=== PATIENT | female | born 1950 | race Caucasian/White ===

== ENCOUNTER → 2019-01-05 | Outpatient (CLI) | payer MEDICARE ==
[~2019-01-05] MED LIST: ASPI81CH PO; B Complete1 EACH PO; GLUCOSAMIN-CHO1 EACH PO; OMEP20ER PO; Zithromax250 MG PO
[2019-01-05 13:34] LABS: BASOPHILS ABSOLUTE AUTO 0.06 K/mm3 (0.00-0.23); BASOPHILS PERCENT AUTO 1 % (0-2); EOSINOPHILS ABSOLUTE AUTO 0.01 K/mm3 (0.00-0.68); EOSINOPHILS PERCENT AUTO 0 % (0-6); Hemoglobin 12.3 g/dL (11.5-16.0); IMMATURE GRAN ABSOLUTE AUTO 0.03 K/mm3 (0.00-0.10); IMMATURE GRAN PERCENT AUTO 0 % (0-1); LYMPHOCYTES ABSOLUTE AUTO 2.13 K/mm3 (0.84-5.20); LYMPHOCYTES PERCENT AUTO 26 % (21-46); MONOCYTES ABSOLUTE AUTO 0.85 K/mm3 (0.16-1.47); MONOCYTES PERCENT AUTO 10 % (4-13); Mean Corpuscular HGB 29.5 pg (26.0-34.0); Mean Corpuscular HGB Conc 30.8 g/dL (31.5-36.5); Mean Corpuscular Volume 96 fL (80-100); Mean Platelet Volume 9.4 fL (9.1-12.4); NEUTROPHILS ABSOLUTE AUTO 5.08 K/mm3 (1.96-9.15); NEUTROPHILS PERCENT AUTO 62 % (41-73); Platelet Count 318 K/mm3 (150-400); RDW Coefficient Variation 13.4 % (11.7-14.2); RDW Standard Deviation 46.7 fL (35.1-46.3); Red Blood Cell Count 4.17 M/mm3 (3.80-5.20); White Blood Cell Count 8.16 K/mm3 (4.00-11.30)
[2019-01-05 14:15] LABS: Albumin, Blood 3.5 g/dL (3.4-5.0); Anion Gap 8 mmol/L (6-16); Aspartate Aminotrans (AST/SGOT 24 U/L (12-37); Blood Urea Nitrogen 21 mg/dL (8-24); Bun/Creatinine Ratio 17.2 (12.0-20.0); CO2, Blood 23 mmol/L (21-32); Calcium, Blood 8.9 mg/dL (8.5-10.1); Chloride, Blood 107 mmol/L (98-108); Creatinine, Blood 1.22 mg/dL (0.40-1.00); Glomerular Filtration Rate 46 (60-); Glucose, Blood 92 mg/dL (70-99); Phosphorus, Blood 3.3 mg/dL (2.5-4.9); Potassium, Blood 4.2 mmol/L (3.5-5.5); Sodium, Blood 138 mmol/L (136-145)
== END | disposition home or self-care (01) ==
LOC: LAB 10:20 → LAB SHORT 10:20 → LAB FUT 01-06 11:15 → EDSTATUS 01-06 11:15
PROVIDERS: Internal Medicine Rheumatology
DX: M05.9 Rheumatoid arthritis with rheumatoid factor, unspecified (principal)
CPT/HCPCS: 80069; 84450; 85025; 85651

== ENCOUNTER 2021-07-19 11:55 | Inpatient (IN) | payer MEDICARE ==
[~2021-07-19] VITALS: Ht 165.1 cm; Wt 86.2 kg
[2021-07-19 12:18] LABS: BASOPHILS ABSOLUTE AUTO 0.03 K/mm3 (0.00-0.23); BASOPHILS PERCENT AUTO 0 % (0-2); EOSINOPHILS PERCENT AUTO 0 % (0-6); Hemoglobin 12.1 g/dL (11.5-16.0); IMMATURE GRAN ABSOLUTE AUTO 0.07 K/mm3 (0.00-0.10); IMMATURE GRAN PERCENT AUTO 1 % (0-1); LYMPHOCYTES ABSOLUTE AUTO 0.67 K/mm3 (0.84-5.20); LYMPHOCYTES PERCENT AUTO 4 % (21-46); MONOCYTES ABSOLUTE AUTO 0.25 K/mm3 (0.16-1.47); MONOCYTES PERCENT AUTO 2 % (4-13); Mean Corpuscular HGB 31.9 pg (26.0-34.0); Mean Corpuscular Volume 103 fL (80-100); Mean Platelet Volume 9.5 fL (9.1-12.4); NEUTROPHILS ABSOLUTE AUTO 14.47 K/mm3 (1.96-9.15); NEUTROPHILS PERCENT AUTO 93 % (41-73); Platelet Count 337 K/mm3 (150-400); RDW Coefficient Variation 14.9 % (11.7-14.2); RDW Standard Deviation 55.8 fL (35.1-46.3); Red Blood Cell Count 3.79 M/mm3 (3.80-5.20); White Blood Cell Count 15.49 K/mm3 (4.00-11.30)
[2021-07-19 12:24] LABS: Bicarbonate Venous 21.5 mmol/L (24.0-30.0); PCO2 Venous 42.7 mmHg (38-42); PO2 Venous 41.2 mmHg (38-42); pH Blood Venous 7.34 (7.34-7.37)
[2021-07-19 12:38] LABS: Albumin/Globulin Ratio 0.7 (0.8-1.8); Bilirubin, Total 0.7 mg/dL (0.1-1.0); Bun/Creatinine Ratio 20.3 (12.0-20.0); Calcium, Blood 8.9 mg/dL (8.5-10.1); Creatinine, Blood 1.43 mg/dL (0.40-1.00); Globulin, Blood 4.2 g/dL (2.2-4.0); Potassium, Blood 4.5 mmol/L (3.5-5.5); Total Protein, Blood 7.2 g/dL (6.4-8.2)
[2021-07-19 13:39] LABS: Influenza A, PCR NEGATIVE (NEGATIVE); Influenza B, PCR NEGATIVE (NEGATIVE); Resp Syncytial Virus, PCR NEGATIVE (NEGATIVE); SARS-Cov-2 (COVID-19) PCR, MMC NEGATIVE (NEGATIVE)
--- NOTE | 2021-07-19 16:50 | NUR ---
PT ARRIVED TO ROOM 334 FROM ER VIA GURNEY. NON REBREATHER IN PLACE ON 15L. SLIDER SHEET USED FOR TRANSFER PT DESATS EASILY WITH ACTIVITY. PT DENIES PAIN AT THIS TIME, ORIENTED PT TO ROOM, PHONES AND CALL SYSTEM. NO S/S OF DISTRESS, WILL MONITOR.
--- NOTE | 2021-07-19 17:15 | NUR ---
PT HUNGRY AND ASKING FOR A SNACK, SHE IS ABLE TO EAT AND TALK ON THE PHONE WITHOUT INCREASED RESP DISTRESS. WILL MONITOR
[2021-07-19] MEDS ORDERED: VITAMIN D31000 UNI1 PO (17:24)
[2021-07-19] MEDS ORDERED: Prednisone10 MG PO (17:25)
[2021-07-19] MEDS ORDERED: ALBUTEROL1.25 MG/3 NEB (17:26)
[2021-07-19] MEDS ORDERED: METTREX2.5 PO (17:26)
--- NOTE | 2021-07-19 19:01 | NUR ---
NO CHANGES SINCE PT ARRIVED TO ROOM, WILL CONTINUE TO MONITOR AND REPORT TO ONCOMING RN
[2021-07-20 04:09] LABS: Hematocrit 35.3 % (33.0-51.0); Hemoglobin 11.2 g/dL (11.5-16.0); Mean Corpuscular HGB 32.2 pg (26.0-34.0); Mean Corpuscular HGB Conc 31.7 g/dL (31.5-36.5); Mean Corpuscular Volume 101 fL (80-100); Mean Platelet Volume 8.9 fL (9.1-12.4); Platelet Count 286 K/mm3 (150-400); RDW Coefficient Variation 14.6 % (11.7-14.2); RDW Standard Deviation 53.6 fL (35.1-46.3); Red Blood Cell Count 3.48 M/mm3 (3.80-5.20); White Blood Cell Count 11.25 K/mm3 (4.00-11.30)
[2021-07-20 04:25] LABS: Bun/Creatinine Ratio 19.6 (12.0-20.0); Calcium, Blood 9.1 mg/dL (8.5-10.1); Creatinine, Blood 1.38 mg/dL (0.40-1.00); Potassium, Blood 4.6 mmol/L (3.5-5.5)
--- NOTE | 2021-07-20 07:36 | NUR ---
PROFESSOR OF JOURNALISM SUMMARY Patient had no complaints of discomfort overnight. AIRVO was placed at 30L and 53% FI02. just after change of shift. Ms Brooks continued to have difficulties with profound drops in her 02 Sat regularly down into the 60's with very minimal movement. (taking a drink or being assisted onto a bedpan). RT was in very frequently as well as nursing staff. Patient appeared to tolerate these tremendous desats and prolonged recoveries. staff has been told to minimize her movement, and no activity OOB to preserve 02 status. Concerns conveyed to oncoming RN's)
[2021-07-20] MEDS ORDERED: ACET500 PO (11:01)
[2021-07-20] MEDS ORDERED: FOLI1 PO (11:03)
[2021-07-20] MEDS ORDERED: GUAI600T33 PO (11:03)
[2021-07-20] MEDS ORDERED: BREZTRI AEROS10.7 GM INH (11:05)
--- NOTE | 2021-07-21 06:18 | NUR ---
PRIZE JACKER SUMMARY PATIENT OXYGEN DEMAND CONTINUES TO BE VERY LABILE. ROSELINE'S SAT DOES NOT APPEAR TO DROP QUITE FAR WITH POSITION CHANGES OR BEDPAN. DIPS INTO THE LOW 70'S WITH CONSISTANTLY SLOW RECOVERY BACK TO HIGH 80'S TO LOW 90'S. PATIENT HAD A VERY LARGE LOOSE BOWEL MOVEMENT IN THE EVENING. SHE IS ALREADY GETTING A PROBIOTIC AT . NO OTHER CHANGES OVERNIGHT.
--- NOTE | 2021-07-21 17:15 | NUR ---
SHIFT SUMMARY: NO ACUTE EVENTS. CONVERTED PT TO NRB AT 10 L/MIN FOR ACTIVITY; SHE IS ABLE TO TOLERATE ACTIVITY MUCH BETTER THIS WAY THAN WITH AIRVO. SAT UP FOR ABOUT 30 MINUTES, ABLE TO TOLERATE FULL BATH WHILE IN CHAIR. WHEN SHE WENT BTB, SHE STATED HER BREATHING WAS NOT LABORED AND SHE RECOVERED MORE QUICKLY. DENIED PAIN. MODERATE APPETITE, TOLERATING PO FLUIDS. IS USING INCENTIVE SPIROMETER.
--- NOTE | 2021-07-22 06:18 | NUR ---
PT A/OX4, VERY PLEASANT, ON 30L 43% FiO2 CONTINOUS TO DESAT SIGNIFICANTLY WITH ACTIVITY. PUREWICK PLACED OVERNIGHT TO MINIMIZE DESATING USING COMMODE AND TO ALLOW PT TO SLEEP. NO ACUTE CHANGES NOTED OVERNIGHT.
--- NOTE | 2021-07-22 17:29 | NUR ---
PATIENT CONTINUES TO HAVE SOME WHEEZING IN LUNG COX. SHE HAS SOB WITH TALKING AND MOVEMENT. O2 IS RUNNING 35L, 49 fI02.SHE DENIES PAIN OF ANY KIND OF PAIN, BUT STATES SHE HAS HAD CHEST PAIN IN THE PAST, WHEN 02 IS LOW. DIURETIC AND STEROID STARTING. SHE STILL HAS HOPE OF GOING [place] THIS WEEKEND.
[2021-07-23 04:38] LABS: BASOPHILS ABSOLUTE AUTO 0.02 K/mm3 (0.00-0.23); BASOPHILS PERCENT AUTO 0 % (0-2); EOSINOPHILS PERCENT AUTO 0 % (0-6); Hematocrit 38.8 % (33.0-51.0); Hemoglobin 12.3 g/dL (11.5-16.0); IMMATURE GRAN ABSOLUTE AUTO 0.07 K/mm3 (0.00-0.10); IMMATURE GRAN PERCENT AUTO 1 % (0-1); LYMPHOCYTES ABSOLUTE AUTO 0.43 K/mm3 (0.84-5.20); LYMPHOCYTES PERCENT AUTO 3 % (21-46); MONOCYTES ABSOLUTE AUTO 0.17 K/mm3 (0.16-1.47); MONOCYTES PERCENT AUTO 1 % (4-13); Mean Corpuscular HGB 31.7 pg (26.0-34.0); Mean Corpuscular HGB Conc 31.7 g/dL (31.5-36.5); Mean Corpuscular Volume 100 fL (80-100); Mean Platelet Volume 9.3 fL (9.1-12.4); NEUTROPHILS ABSOLUTE AUTO 12.31 K/mm3 (1.96-9.15); NEUTROPHILS PERCENT AUTO 95 % (41-73); NRBC ABSOLUTE 0.02 K/mm3 (0.00-0.02); NRBC Auto 0.2 /100 WBC (0.0-0.2); Platelet Count 309 K/mm3 (150-400); RDW Coefficient Variation 14.6 % (11.7-14.2); RDW Standard Deviation 53.1 fL (35.1-46.3); Red Blood Cell Count 3.88 M/mm3 (3.80-5.20)
[2021-07-23 04:59] LABS: Anion Gap 7 mmol/L (6-16); Blood Urea Nitrogen 40 mg/dL (8-24); Bun/Creatinine Ratio 26.8 (12.0-20.0); CO2, Blood 25 mmol/L (21-32); Calcium, Blood 9.2 mg/dL (8.5-10.1); Chloride, Blood 107 mmol/L (98-108); Creatinine, Blood 1.49 mg/dL (0.40-1.00); Glomerular Filtration Rate 37 (60-); Glucose, Blood 131 mg/dL (70-99); Phosphorus, Blood 5.1 mg/dL (2.5-4.9); Potassium, Blood 4.7 mmol/L (3.5-5.5); Sodium, Blood 139 mmol/L (136-145)
--- NOTE | 2021-07-23 17:22 | NUR ---
SHIFT SUMMARY PATIENT IS ALERT AND ORIENTED X4. PATIENT HAS BEEN PLEASENT AND COOPERATIVE WITH CARE THIS SHIFT. PATIENT HAS HAD EPISODES WITH SOB WITH EXERTION THIS SHIFT. PATIENT IS ON NASAL CANNULA 6L. PATIENT HAS BEEN IN CHAIR MOST OF SHIFT. PATIENT IS A ONE PERSON ASSIST TO COMMODE. DESATS WITH ACTIVITY. BED IN LOCKED AND LOWEST POSITION. CALL LIGHT IN PLACE. WILL MONITOR UNTIL SHIFT CHANGE.
[2021-07-24 05:48] LABS: Bun/Creatinine Ratio 35.7 (12.0-20.0); Calcium, Blood 9.5 mg/dL (8.5-10.1); Creatinine, Blood 1.54 mg/dL (0.40-1.00); Potassium, Blood 4.7 mmol/L (3.5-5.5)
--- NOTE | 2021-07-24 07:23 | NUR ---
PT weaned back to 5 l via mask per RT & tolerating. She has bioxx & is able to tolerate being up to BSC. Productive cough this AM strep G in sputum per recent culture.
--- NOTE | 2021-07-24 14:18 | NUR ---
Initial Visit Palliative Care Consult for Pulmonary, AD/POLST, and Advanced Care Planning. 71 year old female admitted to the hospital for Pnuemonia. Pt's medical history and comorbidities include: Rhrumatoid with Pumonary, COPD with Severe Emphesema, Pulmonary Fibrosis, and Chronic Pain. Pt is sitting in recliner upon arrival. Pt has friend present intitally but she leaves shortly after arrival. Pt is A&O and denies pain at this time. Pt denies anxiety at this time but does report anxiety with SOB. Pt reports mild dyspnea at this time but states breathing has significanlty improved. Pt reports living at home with her . Pt has a son who lives on the same property. She reports spouse is capable of assisting with some of her basice needs such as cooking but does not think he would be capable of providing intense care if ever needed. She reports her son is also supportive. Engaged in therapeutic discussion regarding advanced care planning. Educated on disease process including trajectory of disease. Discussed the importance of routine conversation with PCP and developing multiple plans as disease progresses. Discussed Advanced Directives and POLST. Educated on life sustaining measures and implications of CPR. Educated on each section to complete on POLST and AD. Educated on choices for each form. Discussed the importance of appointing a healthcare passenger representative on AD. Offered therapeutic listening and answered questions. Pt reports plan to discuss with family and will complete at home. Pt expresses appreciation and reports no other concerns at this time. PPS 50% Pt high risk for readmission Palliative Care will remain available.
--- NOTE | 2021-07-24 18:05 | NUR ---
PATIENT A/OX4, VERY PLEASANT AND COOPERATIVE WITH CARE. DENIES ANY PAIN OR DISCMOFORT. VSS, 5LO2 VIA OXYMASK TO MAINTAIN SATS. PATIENT DESATS WITH ACTIVITY AND EATING. SKIN INTACT. AT BEDSIDE THIS EVENING. CONTINENT/INCONTIENT OF URINE, PUREWICK CATH IN PLACE WHEN IN BED. UP TO CHAIR FOR MOST OF THIS SHIFT, WORKING WITH PT. TOLERATING REGULAR DIET. IV R FA WNL AND SL. CALLS APPROPRIATELY FOR ASSISTANCE.
--- NOTE | 2021-07-25 15:36 | NUR ---
Spiritual Care Visit Pt. is sitting up in a chair with her feet up on the bed. Pt. welcomes my visit. Pt. is unsettled by the length of time she has had to use O2 and deal with her medical diagnosis. As a woman of justa her justa and belief is grounded in the Good News. Pt. is unsettled by the spiritual condition of her and son. Establish rapport and pray for Pt., Pts. , and son. Pt. verbalized gratitude for the spiritual care visit. Pt. looks to discharge tomorrow (07/26).
--- NOTE | 2021-07-25 18:21 | NUR ---
PATIENT ALERT AND ORIENTED X4. SHE HAS BEEN PLEASANT AND COOPERATIVE WITH HER CARE. SHE IS STILL HAVING LOW OXYGEN IN THE 60'S-70'S WITH ANY KIND OF ACTIVITY. SHE IS A 1 PERSON ASSIST TO THE BEDSIDE COMMODE. SHE HAS SPENT THE MAJORITY OF THE SHIFT IN HER RECLINER AND SEEMS TO BE HAPPY AND RELAXED. PT TO BE DISCHARGED TOMORROW. CALL LIGHT IN REACH. BED IN LOWEST POSITION. WILL CONTINUE TO MONITOR TILL END OF SHIFT.
--- NOTE | 2021-07-25 18:36 | NUR ---
REVIEWED NOTES AND ASSESSMENT DOCUMENTATION CHARTED BY PHIL, STUDENT NURSE AND AGREE WITH HER FINDINGS ON THIS PATIENT.
--- NOTE | 2021-07-26 04:48 | NUR ---
Patient with VSS on 5l/o2 overnight. Patient desats with any activity but is ableto recover quickly. Up to bedside commode to void. Skin inspection reveals no acute skin issues. Patient hopingto go home today after home O2 eval is complete.
--- NOTE | 2021-07-26 07:55 | NUR ---
Patient complaining of feeling like a coating in the back of her mouth/throat. Appears to be thrush in appearance. called provider. will enter an order for nystatin.
[2021-07-26] MEDS ORDERED: PRED20 PO (13:44)
[2021-07-26] MEDS ORDERED: NYSTATIN100000 U10 MT (13:46)
--- NOTE | 2021-07-26 17:12 | NUR ---
PATIENT WAS DISHCARGED HOME TODAY. [facility] WILL BE MANAGING HOME O2. SHE WAS INSTRUCTED ON DISCHARGE ORDERS, EDUCATION AND IV WAS REMOVED BEFORE SHE LEFT, TRANSPORTED BY TO HOME.
== END 2021-07-26 16:05 | disposition home health service (06) | DRG 871 ==
LOC: ER 11:55 → MEDS 16:42
PROVIDERS: Emergency Medicine; Student in an Organized Health Care Education/Training Program; ADMIT Internal Medicine
DX: A40.8 Other streptococcal sepsis (principal); J15.4 Pneumonia due to other streptococci; J96.21 Acute and chronic respiratory failure with hypoxia; R65.20 Severe sepsis without septic shock; Z20.822 Contact with and (suspected) exposure to COVID-19; M06.9 Rheumatoid arthritis, unspecified; K21.9 Gastro-esophageal reflux disease without esophagitis; J84.10 Pulmonary fibrosis, unspecified; N18.32 Chronic kidney disease, stage 3b; J43.9 Emphysema, unspecified; Z99.81 Dependence on supplemental oxygen; Z90.49 Acquired absence of other specified parts of digestive tract; Z90.89 Acquired absence of other organs; Z87.891 Personal history of nicotine dependence; Z79.82 Long term (current) use of aspirin; Z79.899 Other long term (current) drug therapy
CPT/HCPCS: 0241U; 36415; 71045; 71260; 80048; 80053; 80069; 82803; 83880; 84145; 84484; 85025; 85027; 85379; 87070; 87147; 87205; 87449; 93005; 93010; 94640; 94660; 94664; 94760; 94761; 94762; 96374-59; 97110; 97161; 97165; 97530; 97535; 99285-25; A9270; J0696; J1650; J1940; J2930; J7030; J7512; J8610; Q9967

== ENCOUNTER → 2021-08-30 | Outpatient (CLI) | payer MEDICARE ==
[~2021-08-30] MED LIST changes: +ACET500 PO; +ALBUTEROL1.25 MG/3 NEB; +BREZTRI AEROS10.7 GM INH; +FOLI1 PO; +GUAI600T33 PO; +METTREX2.5 PO; +NYSTATIN100000 U10 MT; +PRED20 PO; +Prednisone10 MG PO; +VITAMIN D31000 UNI1 PO
[2021-08-30 19:14] LABS: Appearance, Urine Hazy (Clear); Bilirubin, Urine Neg (Neg); Blood, Urine 2+ (Neg); Glucose Qualitative, Urine Neg (Neg); Ketones, Urine Neg (Neg); Leukocyte Esterase, Urine 2+ (Neg); Nitrite, Urine Pos (Neg); Protein, Urine 1+ (Neg); Urobilinogen, Urine NORM (Normal)
[2021-08-30 20:12] LABS: Color, Urine Pale Yellow (P-Yellow)
[2021-08-30 20:14] LABS: Amorphous Light (0-Heavy); Bacteria Few /hpf; Squamous Epithelial Cells Few /hpf (Few); White Blood Cells, Urine 50-100 /hpf (0-5)
== END | disposition home or self-care (01) ==
LOC: LAB 17:29 → LAB SHORT 17:29
PROVIDERS: Nurse Practitioner Family
DX: N39.0 Urinary tract infection, site not specified (principal)
CPT/HCPCS: 81001; 87077; 87086; 87186

== ENCOUNTER 2021-09-07 11:46 | Inpatient (IN) | payer MEDICARE ==
[~2021-09-07] VITALS: Ht 152.4 cm; Wt 101.5 kg
[2021-09-07 12:06] LABS: BASOPHILS ABSOLUTE AUTO 0.07 K/mm3 (0.00-0.23); BASOPHILS PERCENT AUTO 0 % (0-2); EOSINOPHILS ABSOLUTE AUTO 0.01 K/mm3 (0.00-0.68); EOSINOPHILS PERCENT AUTO 0 % (0-6); Hematocrit 37.7 % (33.0-51.0); Hemoglobin 11.5 g/dL (11.5-16.0); IMMATURE GRAN ABSOLUTE AUTO 0.11 K/mm3 (0.00-0.10); IMMATURE GRAN PERCENT AUTO 1 % (0-1); LYMPHOCYTES ABSOLUTE AUTO 1.26 K/mm3 (0.84-5.20); LYMPHOCYTES PERCENT AUTO 7 % (21-46); MONOCYTES ABSOLUTE AUTO 0.55 K/mm3 (0.16-1.47); MONOCYTES PERCENT AUTO 3 % (4-13); Mean Corpuscular HGB 31.2 pg (26.0-34.0); Mean Corpuscular HGB Conc 30.5 g/dL (31.5-36.5); Mean Corpuscular Volume 102 fL (80-100); NEUTROPHILS ABSOLUTE AUTO 14.96 K/mm3 (1.96-9.15); NEUTROPHILS PERCENT AUTO 88 % (41-73); NRBC ABSOLUTE 0.02 K/mm3 (0.00-0.02); NRBC Auto 0.1 /100 WBC (0.0-0.2); Platelet Count 276 K/mm3 (150-400); RDW Coefficient Variation 14.5 % (11.7-14.2); RDW Standard Deviation 53.4 fL (35.1-46.3); Red Blood Cell Count 3.69 M/mm3 (3.80-5.20); White Blood Cell Count 16.96 K/mm3 (4.00-11.30)
[2021-09-07 12:28] LABS: Albumin, Blood 2.8 g/dL (3.4-5.0); Albumin/Globulin Ratio 0.8 (0.8-1.8); Bilirubin, Total 0.5 mg/dL (0.1-1.0); Bun/Creatinine Ratio 17.2 (12.0-20.0); Calcium, Blood 8.4 mg/dL (8.5-10.1); Creatinine, Blood 1.22 mg/dL (0.40-1.00); Globulin, Blood 3.4 g/dL (2.2-4.0); Total Protein, Blood 6.2 g/dL (6.4-8.2)
[2021-09-07 13:15] LABS: Influenza A, PCR NEGATIVE (NEGATIVE); Influenza B, PCR NEGATIVE (NEGATIVE); Resp Syncytial Virus, PCR NEGATIVE (NEGATIVE)
[2021-09-07 13:27] LABS: SARS-Cov-2 (COVID-19) PCR, MMC POSITIVE (NEGATIVE)
[2021-09-07 17:27] LABS: Base Excess Venous -1.6 mmol/L; Bicarbonate Venous 23.2 mmol/L (24.0-30.0); PCO2 Venous 37.6 mmHg (38-42)
[2021-09-07 22:01] LABS: Source, Urine Foley catheter
[2021-09-07 22:06] LABS: Bilirubin, Urine Neg (Neg); Blood, Urine 1+ (Neg); Glucose Qualitative, Urine Neg (Neg); Ketones, Urine Neg (Neg); Leukocyte Esterase, Urine 1+ (Neg); Nitrite, Urine Pos (Neg); Protein, Urine Neg (Neg); Specific Gravity, Urine 1.015 (1.003-1.022); Urobilinogen, Urine NORM (Normal)
[2021-09-07 22:17] LABS: Appearance, Urine Hazy (Clear); Color, Urine Yellow (P-Yellow)
[2021-09-07 22:18] LABS: Bacteria Many /hpf; Red Blood Cells, Urine 0-2 /hpf (0-2); Squamous Epithelial Cells Rare /hpf (Few)
[2021-09-08 04:08] LABS: BASOPHILS ABSOLUTE AUTO 0.01 K/mm3 (0.00-0.23); BASOPHILS PERCENT AUTO 0 % (0-2); EOSINOPHILS PERCENT AUTO 0 % (0-6); Hematocrit 35.8 % (33.0-51.0); IMMATURE GRAN ABSOLUTE AUTO 0.05 K/mm3 (0.00-0.10); IMMATURE GRAN PERCENT AUTO 1 % (0-1); LYMPHOCYTES ABSOLUTE AUTO 0.86 K/mm3 (0.84-5.20); LYMPHOCYTES PERCENT AUTO 9 % (21-46); MONOCYTES ABSOLUTE AUTO 0.64 K/mm3 (0.16-1.47); MONOCYTES PERCENT AUTO 7 % (4-13); Mean Corpuscular HGB 31.3 pg (26.0-34.0); Mean Corpuscular HGB Conc 30.7 g/dL (31.5-36.5); Mean Corpuscular Volume 102 fL (80-100); NEUTROPHILS ABSOLUTE AUTO 8.03 K/mm3 (1.96-9.15); NEUTROPHILS PERCENT AUTO 84 % (41-73); NRBC ABSOLUTE 0.02 K/mm3 (0.00-0.02); NRBC Auto 0.2 /100 WBC (0.0-0.2); Platelet Count 262 K/mm3 (150-400); RDW Coefficient Variation 14.5 % (11.7-14.2); RDW Standard Deviation 53.9 fL (35.1-46.3); Red Blood Cell Count 3.52 M/mm3 (3.80-5.20); White Blood Cell Count 9.59 K/mm3 (4.00-11.30)
[2021-09-08 04:38] LABS: Albumin, Blood 2.8 g/dL (3.4-5.0); Albumin/Globulin Ratio 0.8 (0.8-1.8); Bilirubin, Total 0.4 mg/dL (0.1-1.0); Bun/Creatinine Ratio 20.8 (12.0-20.0); Creatinine, Blood 1.3 mg/dL (0.40-1.00); Globulin, Blood 3.4 g/dL (2.2-4.0); Potassium, Blood 4.7 mmol/L (3.5-5.5); Total Protein, Blood 6.2 g/dL (6.4-8.2)
--- NOTE | 2021-09-08 06:20 | NUR ---
NOC SHIFT SUMMARY PT ORIENTED X4 OVERNIGHT, ON HFNC 45L @ 70-75%. DESATS QUICKLY TO 50-70% SPO2 W/ANY MOVEMENT. REQUIRES 100% O2 FOR SEVERAL MINUTES AND COACHED BREATHING TO RECOVER. OTHER VSS. SR ON TELEMETRY. NO COMPLAINTS OF PAIN. OBTAINED ORDER FROM ON-CALL RESIDENT DR. LILLY FOR MANTILLA CATHETER D/T PT INCONTINENCE AND INTOLERANCE OF MOVEMENT. MANTILLA PLACED AND PT TOLERATED PROCEDURE WELL. PT SLEPT WELL. WILL CONTINUE TO MONITOR AND PASS ON TO DAY RN
--- NOTE | 2021-09-08 09:00 | NUR ---
[facility] of Care: Care assumed at 0700hr. Patient a/o x4. Denies pain, discomfort. Denies SOB/dyspnea at rest, but quickly becomes SOB with activity. Currently on Airvo NC at 45L/70%, SpO2-94-98%. With activity (bed-silvestre), SpO2 decreasing to 70's, taking 2-3minutes to recover. Appears comfortable and without distress while at rest. Patient states this respiratory status is not far from her baseline. All other VSS. Tolerating PO intake without difficulty, ate 100% of breakfast. Kline cath patent and intact, draining clear yellow urine. Peripheral IV to rt wrist patent and intact. Call light in reach, makes needs known. Will continue to monitor.
--- NOTE | 2021-09-08 18:11 | NUR ---
Shift Summary: No significant changes throughout shift. Patient continues to be calm and comfortable at rest, but spO2 quickly decreases to 60's-80's with any activity and coughing fits. Mostly on Airvo NC throughout shift, settings decreased to 40/60%. All other VS remains stable. Requires 100% FiO2 during when desaturating, recovers within a few minutes. RT Sandee set-up patient's home Oxy-mask with 10L bleed-in. Patient tolerated this mask well, but required Airvo NC to recover from activity. Home BiPAP/AVAPS machine also set-up at bedside for sleep. Kline cath remains patent and intact, draining clear yellow urine. Call placed to Dr. Chambers this afternoon r/t patient's occasional coughing fits. Received order for prn Tesslon pearls, x1 dose given this evening, will monitor for effect. Call light in reach, makes needs known. Will continue to monitor until report to NOC shift RN.
[2021-09-09 04:06] LABS: BASOPHILS ABSOLUTE AUTO 0.01 K/mm3 (0.00-0.23); BASOPHILS PERCENT AUTO 0 % (0-2); EOSINOPHILS PERCENT AUTO 0 % (0-6); Hematocrit 35.5 % (33.0-51.0); Hemoglobin 11.1 g/dL (11.5-16.0); IMMATURE GRAN ABSOLUTE AUTO 0.06 K/mm3 (0.00-0.10); IMMATURE GRAN PERCENT AUTO 1 % (0-1); LYMPHOCYTES ABSOLUTE AUTO 1.19 K/mm3 (0.84-5.20); LYMPHOCYTES PERCENT AUTO 14 % (21-46); MONOCYTES ABSOLUTE AUTO 0.72 K/mm3 (0.16-1.47); MONOCYTES PERCENT AUTO 8 % (4-13); Mean Corpuscular HGB 31.1 pg (26.0-34.0); Mean Corpuscular HGB Conc 31.3 g/dL (31.5-36.5); Mean Corpuscular Volume 99 fL (80-100); Mean Platelet Volume 9.7 fL (9.1-12.4); NEUTROPHILS ABSOLUTE AUTO 6.69 K/mm3 (1.96-9.15); NEUTROPHILS PERCENT AUTO 77 % (41-73); NRBC ABSOLUTE 0.02 K/mm3 (0.00-0.02); NRBC Auto 0.2 /100 WBC (0.0-0.2); Platelet Count 282 K/mm3 (150-400); RDW Coefficient Variation 14.6 % (11.7-14.2); RDW Standard Deviation 52.8 fL (35.1-46.3); Red Blood Cell Count 3.57 M/mm3 (3.80-5.20); White Blood Cell Count 8.67 K/mm3 (4.00-11.30)
[2021-09-09 04:23] LABS: Bun/Creatinine Ratio 24.1 (12.0-20.0); Calcium, Blood 9.2 mg/dL (8.5-10.1); Creatinine, Blood 1.33 mg/dL (0.40-1.00); Potassium, Blood 4.5 mmol/L (3.5-5.5)
--- NOTE | 2021-09-09 06:03 | NUR ---
SHIFT SUMMARY: PT ALERT AND ORIENTED X4 AND IS MOSTLY INDIPENDANT IN BED. PT DENIES PAIN BUT ENDORSES BEING SOB WITH MOVEMENT DUE TO FIBROSIS. PT'S VSS OVER NIGHT AND GOOD URINE OUT PUT FROM THE MANTILLA. PT PLACED ON THE TRILOGY MACHINE WITH A 12-15L BLEED IN AND TOLLERATED THAT VERY WELL OVER NIGHT WITH SPO2 MOSTLY IN THE MID 90'S. PT PLACED BACK ON AIRVO AROUND 0530 AT PREVIOUS SETTINGS, 40L, 60%.
--- NOTE | 2021-09-09 14:55 | NUR ---
Initial palliative care consult: Rosa Stephens is a 71 year old lady with a history or pulmonary fibrosis with home O2 @ 10 l/min, RA, GERD, COPD, CKD stage IIIB. She was admitted with acute on chronic resp failure. She is also covid +. She lives with her of 52 years in [place]. She has one son currently living on her property. Two other children are close as well (Darryl and Baldemar.) She reports that she needs assistance with ADLs. She is able to feed herself and she pays the bills and is able to keep books. Her assists her with dressing, when he does she isn't nearly as winded as she gets without help. She has a walker, WC, BSC. She reports minimal activity. Pivoting from a chair into a WC will cause her O2 sats to drop and she takes many minutes (sometimes up to 15) to recover. She is currently an [facility] patient since June of this year. She gets visits weekly. She reports that she has AD and POLST paperwork at home and she brought up that she plans to work on these after discharge. Offered to assist her with the papers, she declined and states that she wants to talk to her about it. Currently she is a full code which she agrees with. She states that "I'd be fine to go home with Cristóbal, but my isn't ready." Discussed quality vs. quantity of life. Her PPS scale is 40%, KPS 40%. When she is ready for services she would meet hospice criteria as she has dyspnea at rest, acute on chronic resp failure, descreased functional ability, is dependent for most ADLs. This writer technical publications and DIRECTOR ELECTRONICS repositioned her prior to the end of the visit. Just laying her head down and rolling from one side to the other to change the tafoya dropped her O2 sats and pt became increasing SOB. Able to recover in about 5 minutes. PC to continue to assist with advanced care planning prn.
--- NOTE | 2021-09-09 17:14 | NUR ---
SHIFT SUMMARY PT REMAINS ALERT AND ORIENTED. BP STABLE. HR NSR. PT ON HEATED, HUMIDIFIED, HF NC AT 40L AND 60% FIO2 AT THIS TIME WITH SATS AT 93%. PT DESATURATES QUICKLY TO THE 70'S WITH MIIMAL EXERTION AND TAKES MINUTES TO RECOVER. PT TO USE HOME TRILOGY WHILE SLEEPING. PT DENIES ANY PAIN THIS SHIFT. PT REPORTS COUGH IS LESS FREQUENT TODAY. PT ABLE TO REPOSITION HERSELF IN BED. MANTILLA PATENT AND DRAINING CLEAR YELLOW URINE AT THIS TIME. WILL CONTINUE TO MONITOR AND REPORT TO ONCOMING RN
[2021-09-10 05:02] LABS: BASOPHILS ABSOLUTE AUTO 0.01 K/mm3 (0.00-0.23); BASOPHILS PERCENT AUTO 0 % (0-2); EOSINOPHILS PERCENT AUTO 0 % (0-6); Hematocrit 39.3 % (33.0-51.0); IMMATURE GRAN ABSOLUTE AUTO 0.07 K/mm3 (0.00-0.10); IMMATURE GRAN PERCENT AUTO 1 % (0-1); LYMPHOCYTES ABSOLUTE AUTO 0.68 K/mm3 (0.84-5.20); LYMPHOCYTES PERCENT AUTO 7 % (21-46); MONOCYTES ABSOLUTE AUTO 0.18 K/mm3 (0.16-1.47); MONOCYTES PERCENT AUTO 2 % (4-13); Mean Corpuscular HGB 30.9 pg (26.0-34.0); Mean Corpuscular HGB Conc 30.5 g/dL (31.5-36.5); Mean Corpuscular Volume 101 fL (80-100); NEUTROPHILS ABSOLUTE AUTO 8.59 K/mm3 (1.96-9.15); NEUTROPHILS PERCENT AUTO 90 % (41-73); Platelet Count 295 K/mm3 (150-400); RDW Coefficient Variation 14.6 % (11.7-14.2); RDW Standard Deviation 53.6 fL (35.1-46.3); Red Blood Cell Count 3.88 M/mm3 (3.80-5.20); White Blood Cell Count 9.53 K/mm3 (4.00-11.30)
[2021-09-10 05:22] LABS: Bun/Creatinine Ratio 24.8 (12.0-20.0); Calcium, Blood 9.5 mg/dL (8.5-10.1); Creatinine, Blood 1.41 mg/dL (0.40-1.00)
--- NOTE | 2021-09-10 05:35 | NUR ---
SHIFT SUMMARY PATIENT IS ALERT AND ORIENTED X4. 02 SATS 88-94% ON AIRVO, 40L FI02 60% WHILE AWAKE AND CPAP AT NIGHT WHILE SLEEPING, THIS AM PATIENT WOKE UP COUGHING AND 02 SATS DROPPED TO THE 60s, PATIENT ABLE TO RECOVER FOR SHORT PERIODS OF TIME, MEDICATED PER EMAR FOR COUGH, RT TO ROOM. HR SB-SR 50s-80s, BP STABLE. MANTILLA PATENT AND DRAINING TO GRAVITY. PATIENT ABLE TO REPOSITION SELF, ASSISTANCE PROVIDED WHEN NEEDED. BEDPAN FOR BOWEL MOVEMENTS. CALL LIGHT IN REACH
--- NOTE | 2021-09-10 13:51 | NUR ---
Spiritual care visit conducted. Xenia is sitting up in bed and alert. She talks at length about her disease, her family (and their complications) and her Spiritism justa. 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 Pt is pleasant. I learn about her fears and worries and about what is important to her in these challenging days. I normalize her feelings, reinforce her helpful attitudes and provide therapeutic listening and, gentle careers counsellor and prayer. Pt responds well to all interventions and displays evidence of increased peace and a reduction of fear. I will continue to remain available to pt and family.
--- NOTE | 2021-09-10 17:28 | NUR ---
SHIFT SUMMARY PT PAIGE
--- NOTE | 2021-09-10 17:55 | NUR ---
SHIFT SUMMARY PT REMAINS ALERT AND ORIENTED. BP STABLE. HR REMAINS NSR. PT TITRATED DOWN TO 40L AND 60% FIO2 VIAL HIGH FLOW WITH SATS >90%. PT DENIES ANY PAIN ALL SHIFT. MANTILLA PATENT AND DRAINING CLEAR YELLOW URINE. PT DID HAVE TWO CONTINENT BM THIS SHIFT. PT ABLE TO REPOSITION HERSELF IN HER BED. WILL CONTINUE TO MONITOR AND REPORT TO ONCOMING RN
[2021-09-11 04:21] LABS: BASOPHILS ABSOLUTE AUTO 0.01 K/mm3 (0.00-0.23); BASOPHILS PERCENT AUTO 0 % (0-2); EOSINOPHILS PERCENT AUTO 0 % (0-6); Hematocrit 38.4 % (33.0-51.0); Hemoglobin 11.8 g/dL (11.5-16.0); IMMATURE GRAN ABSOLUTE AUTO 0.11 K/mm3 (0.00-0.10); IMMATURE GRAN PERCENT AUTO 1 % (0-1); LYMPHOCYTES ABSOLUTE AUTO 0.57 K/mm3 (0.84-5.20); LYMPHOCYTES PERCENT AUTO 4 % (21-46); MONOCYTES ABSOLUTE AUTO 0.34 K/mm3 (0.16-1.47); MONOCYTES PERCENT AUTO 2 % (4-13); Mean Corpuscular HGB 30.6 pg (26.0-34.0); Mean Corpuscular HGB Conc 30.7 g/dL (31.5-36.5); Mean Corpuscular Volume 100 fL (80-100); NEUTROPHILS ABSOLUTE AUTO 15.29 K/mm3 (1.96-9.15); NEUTROPHILS PERCENT AUTO 94 % (41-73); Platelet Count 327 K/mm3 (150-400); RDW Coefficient Variation 14.6 % (11.7-14.2); RDW Standard Deviation 52.5 fL (35.1-46.3); Red Blood Cell Count 3.86 M/mm3 (3.80-5.20); White Blood Cell Count 16.32 K/mm3 (4.00-11.30)
[2021-09-11 04:36] LABS: Bun/Creatinine Ratio 32.8 (12.0-20.0); Calcium, Blood 9.2 mg/dL (8.5-10.1); Creatinine, Blood 1.19 mg/dL (0.40-1.00); Potassium, Blood 4.7 mmol/L (3.5-5.5)
--- NOTE | 2021-09-11 05:49 | NUR ---
SHIFT SUMMARY ASSUMED CARE OF PT AT 1900. PT IS A/OX4. HEART SOUNDS REGULAR, LUNG SOUNDS HAVE WHEEZES IN THE R UPPER FEILDS AND CRACKLES BILATERAL BASES. PT WAS ON 40L/60% DURING THE NIGHT UNTIL 0430 THIS AM WHEN SHE HAD A COUGHING FIT WHERE HE SATURATIONS GOT DOWN TO 40%. PT WAS PUT ON AIRVO AT 40L/70% AND A NONREBREATHER. PT SATURATIONS CAME BACK UP TP 95%. PT WAS INCONTIENT OF BOWEL. STATING IT WAS THE MEDICINES AND HER COUGHING MAKING IT WORSE. PT HAS A MANTILLA, DRAINING WITH GRAVITY.
--- NOTE | 2021-09-11 17:51 | NUR ---
PT'S OXYGEN NEEDS HAVE DECREASED THIS SHIFT, WHICH SHE IS TOLERATING WELL. VSS. NADN. REPORTS SLIGHT IMPROVEMENT IN BREATHING. A/O X3, ANSWERING QUESTIONS APPOPRIATELY IN FULL SENTENCES. PT WITH A FEW EPISODES OF INCONTENNCE OF BOWEL THIS SHIFT WITH COUGHING EPISODES. PT DID HAVE ONE COUGHING EPISODE WITH DESATURATION BUT WAS ABLE TO RECOVER WITHOUT ANY FURTHER INTERVENTION TO INCREASE SPO2. THERE ARE NO FURTHER CHANGES TO DISCUSS THIS SHIFT.
[2021-09-12 05:04] LABS: BASOPHILS ABSOLUTE AUTO 0.01 K/mm3 (0.00-0.23); BASOPHILS PERCENT AUTO 0 % (0-2); EOSINOPHILS PERCENT AUTO 0 % (0-6); Hematocrit 38.1 % (33.0-51.0); Hemoglobin 11.6 g/dL (11.5-16.0); IMMATURE GRAN ABSOLUTE AUTO 0.13 K/mm3 (0.00-0.10); IMMATURE GRAN PERCENT AUTO 1 % (0-1); LYMPHOCYTES ABSOLUTE AUTO 0.61 K/mm3 (0.84-5.20); LYMPHOCYTES PERCENT AUTO 4 % (21-46); MONOCYTES ABSOLUTE AUTO 0.11 K/mm3 (0.16-1.47); MONOCYTES PERCENT AUTO 1 % (4-13); Mean Corpuscular HGB 30.7 pg (26.0-34.0); Mean Corpuscular HGB Conc 30.4 g/dL (31.5-36.5); Mean Corpuscular Volume 101 fL (80-100); Mean Platelet Volume 9.8 fL (9.1-12.4); NEUTROPHILS ABSOLUTE AUTO 14.51 K/mm3 (1.96-9.15); NEUTROPHILS PERCENT AUTO 94 % (41-73); Platelet Count 350 K/mm3 (150-400); RDW Coefficient Variation 14.3 % (11.7-14.2); RDW Standard Deviation 51.8 fL (35.1-46.3); Red Blood Cell Count 3.78 M/mm3 (3.80-5.20); White Blood Cell Count 15.37 K/mm3 (4.00-11.30)
[2021-09-12 05:42] LABS: Bun/Creatinine Ratio 31.5 (12.0-20.0); Calcium, Blood 9.2 mg/dL (8.5-10.1); Creatinine, Blood 1.24 mg/dL (0.40-1.00); Potassium, Blood 4.9 mmol/L (3.5-5.5)
--- NOTE | 2021-09-12 06:39 | NUR ---
SHIFT SUMMARY ASSUMED CARE OF PT AT 1900. PT IS A/OX4. HEART SOUNDS REGULAR. LUNG SOUNDS DIMINISHED WITH SOME CRACKLES AT THE BASES. PT WORE AIRVO AT 35L 65%. PT WORE CPAP WHILE SLEEPING. PT DID NOT HAVE COUGHING FIT THIS AM BUT STILL DESATURATED TO 70% WHEN BLOWING HER NOSE OR MOVING AROUND IN BED. PT WAS UPSET THIS AM ABOUT GETTING AWOKEN FOR VITALS, LABS AND MEDICATIONS. PT WISHES NOT TO BE AWOKEN MUCH.
--- NOTE | 2021-09-12 15:35 | NUR ---
Spiritual care visit conducted. Patient is sitting up in bed and alert. She is tearful today about the isolation and longing to be back at home. We talk about her DNR status and that ulimately this actually brings her peace because she knows that her family and herself will not have to endure through further suffering. She re-emphasizes her peace with God and her nahomi to be in heaven after life. She also explains about the emotional pain of being seperated from the family and the family from herself is the only thought that is hard to get through. I normalize her experience, provide theological insights, gentle deputy county counsel and prayer. Pt responds well and shows signs of being comforted. I will continue to remain available to patient and family.
--- NOTE | 2021-09-12 17:32 | NUR ---
OXYGEN NEEDS HAVE DECREASED T/O THE DAY, 35L WITH 55% FIO2. PT REMAINS A/O X4, TALKING IN FULL SENTENCES, REPORTS MILD IMPROVEMENT IN WORK OF BREATHING. PT DOES DESATURATE WHILE ON THE PHONE BUT IMPROVES WITH DEEP BREATHING. VSS. NADN. PT BECAME AGITATED WITH CLINICAL ADMINISTRATOR WHEN CLINICAL ADMINISTRATOR ATTEMPTED TO REDIRECT PT WHEN SPO2 WAS DROPPING WHILE TALKING ON THE PHONE. PT USES CALL LIGHT APPROPRIATELY, ABLE TO MAKE NEEDS KNOWN. THERE ARE NO ADDITIONAL CHANGES THIS SHIFT TO NOTE
--- NOTE | 2021-09-12 19:00 | NUR ---
ASSUMED CARE ASSUMED CARE OF PATIENT. AWAKE AND ALERT, WATCHING TELEVISION. ORIENTED AND COOPERATIVE. MONITOR SHOWS NSR. REMAINS ON AIRVO AT 35L/55% FIO2. O2 SATS >92% AT REST, BUT DECREASED TO LOW TO MID-80s WITH COUGHING/TALKING EXCESSIVELY. DOES RECOVER QUICKLY. MANTILLA PATENT AND DRAINING TO GRAVITY, CLEAR YELLOW URINE. SOPHY POWERGLIDE PATENT. SEE SHIFT ASSESSMENT FOR FULL ASSESSMENT.
[2021-09-13 05:21] LABS: BASOPHILS ABSOLUTE AUTO 0.01 K/mm3 (0.00-0.23); BASOPHILS PERCENT AUTO 0 % (0-2); EOSINOPHILS PERCENT AUTO 0 % (0-6); Hematocrit 37.6 % (33.0-51.0); Hemoglobin 11.6 g/dL (11.5-16.0); IMMATURE GRAN ABSOLUTE AUTO 0.12 K/mm3 (0.00-0.10); IMMATURE GRAN PERCENT AUTO 1 % (0-1); LYMPHOCYTES ABSOLUTE AUTO 0.63 K/mm3 (0.84-5.20); LYMPHOCYTES PERCENT AUTO 5 % (21-46); MONOCYTES ABSOLUTE AUTO 0.12 K/mm3 (0.16-1.47); MONOCYTES PERCENT AUTO 1 % (4-13); Mean Corpuscular HGB 30.5 pg (26.0-34.0); Mean Corpuscular HGB Conc 30.9 g/dL (31.5-36.5); Mean Corpuscular Volume 99 fL (80-100); Mean Platelet Volume 9.7 fL (9.1-12.4); NEUTROPHILS ABSOLUTE AUTO 11.93 K/mm3 (1.96-9.15); NEUTROPHILS PERCENT AUTO 93 % (41-73); NRBC ABSOLUTE 0.02 K/mm3 (0.00-0.02); NRBC Auto 0.2 /100 WBC (0.0-0.2); Platelet Count 348 K/mm3 (150-400); RDW Coefficient Variation 14.2 % (11.7-14.2); White Blood Cell Count 12.81 K/mm3 (4.00-11.30)
[2021-09-13 05:42] LABS: Albumin, Blood 2.6 g/dL (3.4-5.0); Anion Gap 6 mmol/L (6-16); Blood Urea Nitrogen 41 mg/dL (8-24); Bun/Creatinine Ratio 33.1 (12.0-20.0); CO2, Blood 26 mmol/L (21-32); Calcium, Blood 8.9 mg/dL (8.5-10.1); Chloride, Blood 109 mmol/L (98-108); Creatinine, Blood 1.24 mg/dL (0.40-1.00); Glomerular Filtration Rate 46 (60-); Glucose, Blood 139 mg/dL (70-99); Phosphorus, Blood 3.6 mg/dL (2.5-4.9); Potassium, Blood 4.9 mmol/L (3.5-5.5); Sodium, Blood 141 mmol/L (136-145)
--- NOTE | 2021-09-13 05:56 | NUR ---
SHIFT SUMMARY NO ACUTE CHANGES DURING NOC. CPAP WITH 9L BLEED-IN WHILE SLEEPING, AIRVO 35L/55% WHEN AWAKE. CONTINUES TO HAVE PERIODS OF DESATURATIONS TO HIGH-70s TO LOW-80s WITH EXERTION/COUGHING. STILL RECOVERS FAIRLY QUICKLY. NO C/O PAIN OR DISCOMFORT. REPOSITIONS SELF IN BED. MONITOR SHOWS SB-SR, RATE 50s-60s. BP STABLE. MANTILLA PATENT AND DRAINING TO GRAVITY. OCCASIONALLY INCONTINENT OF LOOSE BROWN STOOL WITH COUGHING. WILL REPORT TO ONCOMING RN WHEN AVAILABLE.
--- NOTE | 2021-09-13 18:31 | NUR ---
PT'S OXYGEN NEEDS HAVE DECREASED T/O THE DAY TODAY. PT WORKED WITH PHYSICAL THERAPY TODAY WAS UP IN THE CHAIR FOR A FEW HOURS TODAY WHICH WAS TOLERATED WELL. PT REPORTS IMPROVEMENT IN WORK OF BREATHING, SHE APPEAR MORE MOTIVATED IN PARTICIPATING IN HER CARE SINCE WORKING WITH PHYSICAL THERAPY. VSS. LI. DENIES CP. THERE ARE OTHERWISE NO ADDITIONAL CHANGES TO NOTE FOR HTIS SHIFT
[2021-09-14 05:01] LABS: BASOPHILS ABSOLUTE AUTO 0.02 K/mm3 (0.00-0.23); BASOPHILS PERCENT AUTO 0 % (0-2); EOSINOPHILS PERCENT AUTO 0 % (0-6); Hematocrit 37.9 % (33.0-51.0); Hemoglobin 11.9 g/dL (11.5-16.0); IMMATURE GRAN ABSOLUTE AUTO 0.27 K/mm3 (0.00-0.10); IMMATURE GRAN PERCENT AUTO 2 % (0-1); LYMPHOCYTES ABSOLUTE AUTO 0.72 K/mm3 (0.84-5.20); LYMPHOCYTES PERCENT AUTO 6 % (21-46); MONOCYTES ABSOLUTE AUTO 0.27 K/mm3 (0.16-1.47); MONOCYTES PERCENT AUTO 2 % (4-13); Mean Corpuscular HGB 30.7 pg (26.0-34.0); Mean Corpuscular HGB Conc 31.4 g/dL (31.5-36.5); Mean Corpuscular Volume 98 fL (80-100); Mean Platelet Volume 9.5 fL (9.1-12.4); NEUTROPHILS ABSOLUTE AUTO 10.79 K/mm3 (1.96-9.15); NEUTROPHILS PERCENT AUTO 89 % (41-73); NRBC ABSOLUTE 0.03 K/mm3 (0.00-0.02); NRBC Auto 0.2 /100 WBC (0.0-0.2); Platelet Count 363 K/mm3 (150-400); RDW Coefficient Variation 14.1 % (11.7-14.2); RDW Standard Deviation 50.4 fL (35.1-46.3); Red Blood Cell Count 3.87 M/mm3 (3.80-5.20); White Blood Cell Count 12.07 K/mm3 (4.00-11.30)
[2021-09-14 05:14] LABS: Albumin, Blood 2.6 g/dL (3.4-5.0); Anion Gap 6 mmol/L (6-16); Blood Urea Nitrogen 45 mg/dL (8-24); Bun/Creatinine Ratio 36.9 (12.0-20.0); CO2, Blood 25 mmol/L (21-32); Calcium, Blood 8.9 mg/dL (8.5-10.1); Chloride, Blood 110 mmol/L (98-108); Creatinine, Blood 1.22 mg/dL (0.40-1.00); Glomerular Filtration Rate 47 (60-); Glucose, Blood 143 mg/dL (70-99); Phosphorus, Blood 3.9 mg/dL (2.5-4.9); Potassium, Blood 4.7 mmol/L (3.5-5.5); Sodium, Blood 141 mmol/L (136-145)
--- NOTE | 2021-09-14 12:17 | NUR ---
CARE NOTE PT ALERT AND ORIENTED, IN CHAIR FOR LUNCH. DENIES PAIN. CALL LIGHT IN REACH.
--- NOTE | 2021-09-14 18:37 | NUR ---
SHIFT SUMMARY PT ALERT AND ORIENTED X 4. SHE DESATURATES WITH MINIMAL EXERTION BUT RECOVERS QUICKLY. SPO2 HAS RANGED FROM 70%-96%. SHE IS CURRENTLY ON HHNC 35L @ 45% FIO2 AND SPO2 MAINTAINS >90%. SHE BP AND HR STABLE. AT APPROX 1500 [employer] NOTIFIED THIS NURSE THAT PT HAD 6 SEC RUN OF SINUS TACH AT 150, PT DENIED CHEST PAIN AND REPORTED THAT SHE WAS HAD BEEN COUGHING. SHE HAS BEEN ABLE TO AMULATE A SBA TO BEDSIDE COMMODE. POWERGLIDE IS SALINE LOCKED. MANTILLA CATHETER IS PATENT AND DRAINING TO GRAVITY. NO OTHER ACUTE CHANGES NOTED. WILL CONTINUE TO MONITOR UNTIL REPORT GIVEN.
--- NOTE | 2021-09-14 21:00 | NUR ---
ASSUMED CARE PT ARRIVED AT 2034 VIA HOSPITAL BED FROM MEDICAL FLOOR ROOM 335 WITH ALL BELONGINGS. PT VERY PLEASANT AND FOLLOWING COMMANDS. STATED FULL NAME AND UNABLE TO STATE , PLACE, TIME AND UNABLE TO STATE HUSBANDS NAME. PT ON D10 GTT @ 100 THROUGH RIGHT AC IV. BP ELEVATED ON ROOM AIR WITH SATS ABOVE 92%. DENIES CHEST PAIN/PRESSURE. DENIES SOB. BLOOD SUGAR OF [address] Kvng FERGUSON[address] BED ALARM ACTIVE. CALL LIGHT IS WITHIN REACH.
--- NOTE | 2021-09-15 05:40 | NUR ---
SHIFT SUMMARY PT ALERT AND ORIENTED X4. THERE HAVE BEEN NO ACUTE CHANGES T/O THE SHIFT. VITALS HAVE REMAINED STABLE. HR IN SR/SB CURRENTLY AT 62. PT IS CURRENTLY ON HFT 45L 60%FIO2 AND SATING AT 98%. SHE HAS WORN HER HOME CPAP T/O THE NIGHT WHILE SLEEPING. PT DENIES CHEST PAIN/PRESSURE. MANTILLA IN PLACE AND DRAINING TO GRAVITY. CALL LIGHT IS WITHIN REACH.
[2021-09-15 05:48] LABS: BASOPHILS ABSOLUTE AUTO 0.03 K/mm3 (0.00-0.23); BASOPHILS PERCENT AUTO 0 % (0-2); EOSINOPHILS PERCENT AUTO 0 % (0-6); Hematocrit 38.4 % (33.0-51.0); Hemoglobin 12.2 g/dL (11.5-16.0); IMMATURE GRAN ABSOLUTE AUTO 0.53 K/mm3 (0.00-0.10); IMMATURE GRAN PERCENT AUTO 5 % (0-1); LYMPHOCYTES ABSOLUTE AUTO 0.62 K/mm3 (0.84-5.20); LYMPHOCYTES PERCENT AUTO 6 % (21-46); MONOCYTES ABSOLUTE AUTO 0.45 K/mm3 (0.16-1.47); MONOCYTES PERCENT AUTO 4 % (4-13); Mean Corpuscular HGB 30.8 pg (26.0-34.0); Mean Corpuscular HGB Conc 31.8 g/dL (31.5-36.5); Mean Corpuscular Volume 97 fL (80-100); Mean Platelet Volume 9.5 fL (9.1-12.4); NEUTROPHILS ABSOLUTE AUTO 8.75 K/mm3 (1.96-9.15); NEUTROPHILS PERCENT AUTO 84 % (41-73); NRBC ABSOLUTE 0.03 K/mm3 (0.00-0.02); NRBC Auto 0.3 /100 WBC (0.0-0.2); Platelet Count 330 K/mm3 (150-400); RDW Coefficient Variation 14.1 % (11.7-14.2); RDW Standard Deviation 50.2 fL (35.1-46.3); Red Blood Cell Count 3.96 M/mm3 (3.80-5.20); White Blood Cell Count 10.38 K/mm3 (4.00-11.30)
[2021-09-15 06:19] LABS: Bun/Creatinine Ratio 42.5 (12.0-20.0); Calcium, Blood 8.9 mg/dL (8.5-10.1); Creatinine, Blood 1.06 mg/dL (0.40-1.00); Potassium, Blood 4.7 mmol/L (3.5-5.5)
--- NOTE | 2021-09-15 09:33 | NUR ---
CARE ASSUMPTION THIS RN ASSUMED CARE FROM SHEELA JOINER AT 0700. PATIENT VSS. TELE SR 60S. SPO2 >90% ON 14L HEATED HIGH FLOW NC. PATIENT IS ALERT AND OREINTED X4. PERRLA. NEURO INTACT. PATIENT REPORTS NO PAIN. PATIENT REPORTS NO CHEST PAIN/PRESSURE. STRONG RADIAL AND PEDIS PULSES. TRACE EDEMA IN LOWER EXTREMITIES. PATIENT REPORTS SHORTNESS OF BREATH WITH EXERTION. PATIENT HAS A PRODUCTIVE COUGH, WITH CLEAR THICK SECRETIONS, SMALL AMOUNT. PATIENT LUNG SOUNDS UPPER CLEAR, LOWER DIM. PATIENT ABD IS MILD DISTENTED PATIENT STATES NORMAL, ACTIVE NONTENDER. PATIENT REPORTED PERVIOUSLY HAVING LOOSE STOOLS, BUT HAS NO HAD ONE THIS AM. PATIENT MANTILLA CATH DRAINING WITH GRAVITY, CLEAR YELLOW. PATIENT SKIN IS INTACT, REDDNESS TO BOTTOM AND CREAM APPLIED. ENCOURAGED REPOSITIONING. PATIENT CURRENTLY SITTING IN BEDSIDE CHAIR. SEE SHIFT ASSESSMENT FOR FURTHER DETAILS. PATIENT USES CALL LIGHT APPROPRIATELY. THIS RN EDUCATED ON CLUSTER OF CARE DUE TO BEING AN ISOLATION ROOM AND LIMITING EXPOSURE. PATIENT VERABLIZED UNDERSTANDING. THIS RN EDUCATED THE PATIENT ON HOURLY ROUNDING AND TO CALL IF NEEDED ASSSITANCE. PATIENT IS INDEPDENT IN ADLS, JUST NEEDS ITEMS BROUGHT TO HER. AM CARE DONE BY PATIENT. CALL LIGHT IS WITHIN REACH. WILL CONTINUE TO MONITOR AND PROVIDE CARE. PLAN OF CARE UP TO DATE.
--- NOTE | 2021-09-15 17:04 | NUR ---
SHIFT SUMMARY PATIENT NEURO REMAINS INTACT. VSS. SPO2 >92% ON 14L HEATED HIGH FLOW NC. PATIENT USES CALL LIGHT APPROPRIATELY AND CALLS WHEN NEEDING ASSISTANCE. PATIENT HAS SAT IN HER BEDSIDE CHAIR ALL DAY LONG WITH FEET OFF AND ON BEING ELEVATED. NO ACUTE CHANGES THIS SHIFT. MANTILLA CATH IN PLACE DRIANING CLEAR YELLOW WITH GRAVITY. POWERGLIDE FLUSHES AND IS SALINE LOCKED. PATIENT GRANDSON IS AT BEDSIDE VISITING. CALL LIGHT WITHIN REACH. PLAN OF CARE UP TO DATE. WILL CONTINUE TO MONITOR AND PROVIDE CARE UNTIL HAND OFF WITH NEXT SHIFT.
--- NOTE | 2021-09-15 21:22 | NUR ---
ASSUMED CARE PT ALERT AND ORIENTED. DENIES CHEST PAIN/PRESSURE. VITALS ARE STABLE AND IS ON 14L HF NC WITH RESCUE NRB WITH SATS ABOVE 90%. PT DESATS WITH EXERTION. CALL LIGHT IS WITHIN REACH.
--- NOTE | 2021-09-16 00:44 | NUR ---
PT VERY UPSET BECAUSE SHE WAS DISRUPTED FROM SLEEP FOR VITALS AND MEDS.
--- NOTE | 2021-09-16 06:31 | NUR ---
SHIFT SUMMARY PT ALERT AND ORIENTED. THERE HAVE BEEN NO ACUTE CHANGES T/O THE NIGHT. THE PT REAMAINS ON 14L HFNC WITH NRB FOR RESCUE WITH ACTIVITY. SHE WORE HOME CPAP T/O THE NIGHT. DENIES CHEST PAIN/PRESSURE. STS THAT SHE IS BREATHING BETTER AND IS NOT SOB OFTEN BEFORE. SHE IS ABLE TO GET UP TO CHAIR OR BSC WITH FWW AND ONE ASSIST. CALL LIGHT IS WITHIN REACH.
--- NOTE | 2021-09-16 17:54 | NUR ---
SHIFT SUMMARY PT REMAINS ALERT AND ORIENTED. BP STABLE. HR REMAINS NSR. PT DENIES ANY PAIN ALL SHIFT. PT ABLE TO TOLERATE GETTING UP TO CHAIR OR BSC THIS SHIFT. PT ON 10L VIA OXYMASK FROM HOME. PT DOES DESATURATE WITH ACITIVITY BUT RECOVERS IN MINUTES. MANTILLA CATHETER REMOVED THIS SHIFT. PT RECEIVED BED BATH. WILL CONTINUE TO MONITOR AND REPORT TO ONCOMING RHYS
--- NOTE | 2021-09-17 05:58 | NUR ---
SHIFT SUMMARY PT IS ALERT AND ORIENTED X4. THERE HAVE BEEN NO ACUTE CHANGES T/O THE NIGHT. VITALS ARE STABLE AND PT IS CURRENTLY ON 10L AND HAS NRB AT BEDSIDE FOR RESCUE. HER SATS HAVE BEEN 80-99% T/O THE NIGHT AND SHE DESATS WITH ACTIVITY. SHE DENIES CHEST PAIN/PRESSURE. SHE IS ABLE TO TRANSFER FROM BED TO BSC WITH FWW BY HERSELF. SHE IS ABLE TO COMMUNICATE ALL NEEDS WHEN NECESSARY. CALL LIGHT IS WITHIN REACH.
--- NOTE | 2021-09-17 08:45 | NUR ---
AM ASSESSMENT: Pt sitting up in bed eating breakfast. States that she is eating very slowly because of her breathing. Pt appears to have good understanding of her disease process, her oxygen needs, and her limitations with activity. Order for home O2 eval and Pt is hopeful for a discharge today. LS coarse throughout. HR reg. BT positive. PUlses palp. Pt denies pain, CP or SOB at this time. VSS. Call light in reach. Will monitor.
[2021-09-17] MEDS ORDERED: AMOCLA875 PO (12:36)
[2021-09-17] MEDS ORDERED: Tessalon200 MG PO (12:36)
[2021-09-17] MEDS ORDERED: Q-Tussin100 MG/5 M PO (12:37)
[2021-09-17] MEDS ORDERED: VISBIOME 112.51 EACH PO (12:38)
--- NOTE | 2021-09-17 16:26 | NUR ---
Spiritual care visit conducted. Pt is minimally responsive. Son, Bam is bedside. He talks at length about his hobbies, interests and friends that add inspiration and nahomi and help him through challenging circumstances. I provide therapeutic listening, companionship and a calming presence. Bam responds well and shows signs of reduced stress. I will continue to remain available to patient and family.
--- NOTE | 2021-09-17 16:35 | NUR ---
DISCHARGE: Pt arrived at 1605. Pt and given verbal and written discharge instructions, verbalized understanding, denied questions. Pt up to BSC and assisted with getting dressed. Powerglide to SOPHY discontinued and cath intact. Pt then up to W/C and taken to car. Tolerated everything well. Home oxygen with patient and placed on 15L per oximask. PT very happy to go home. Stable at time of discharge.
== END 2021-09-17 16:38 | disposition home health service (06) | DRG 177 ==
LOC: ER 11:46 → PCU 16:15
PROVIDERS: Emergency Medicine; Family Medicine; Internal Medicine; Student in an Organized Health Care Education/Training Program; ADMIT Internal Medicine
PROC: 5A09357 Assistance with Respiratory Ventilation, Less than 24 Consecutive Hours, Continuous Positive Airway Pressure (ICD-10-PCS; principal; 2021-09-07)
PROC: XW033H6 Introduction of Other New Technology Monoclonal Antibody into Peripheral Vein, Percutaneous Approach, New Technology Group 6 (ICD-10-PCS; 2021-09-07)
PROC: 8E0ZXY6 Isolation (ICD-10-PCS; 2021-09-07)
PROC: 3E03329 Introduction of Other Anti-infective into Peripheral Vein, Percutaneous Approach (ICD-10-PCS; 2021-09-07)
PROC: 3E0333Z Introduction of Anti-inflammatory into Peripheral Vein, Percutaneous Approach (ICD-10-PCS; 2021-09-08)
DX: U07.1 COVID-19 (principal); J12.82 Pneumonia due to coronavirus disease 2019; J96.21 Acute and chronic respiratory failure with hypoxia; J44.0 Chronic obstructive pulmonary disease with (acute) lower respiratory infection; N39.0 Urinary tract infection, site not specified; J84.112 Idiopathic pulmonary fibrosis; Z99.81 Dependence on supplemental oxygen; M06.9 Rheumatoid arthritis, unspecified; K21.9 Gastro-esophageal reflux disease without esophagitis; N18.32 Chronic kidney disease, stage 3b; Z90.49 Acquired absence of other specified parts of digestive tract; Z87.891 Personal history of nicotine dependence; Z98.890 Other specified postprocedural states; Z79.899 Other long term (current) drug therapy; Z23 Encounter for immunization; Z66 Do not resuscitate
CPT/HCPCS: 0241U; 36415; 51702; 71045; 80048; 80053; 80069; 81001; 82803; 83880; 84145; 84484; 85025; 87040; 87077; 87086; 87186; 93005; 93010; 93306; 93308; 93321; 94640; 94660; 94664; 94761; 94762; 97110; 97162; 97530; 99285-25; A9270; C1751; J0694; J0696; J1100; J1650; J2405; J2930; J7040; J7512; J8610; M0222

== ENCOUNTER 2021-09-30 16:01 | Inpatient (IN) | payer MEDICARE ==
[~2021-09-30] VITALS: Ht 172.7 cm; Wt 95.8 kg
[~2021-09-30 16:01] MED LIST changes: +AMOCLA875 PO; +Q-Tussin100 MG/5 M PO; +Tessalon200 MG PO; +VISBIOME 112.51 EACH PO
[2021-09-30 16:15] LABS: Calcium, Ionized (POC) 1.21 mmol/L (1.10-1.46); Chloride (POC) 109 mmol/L (98-108); Creatinine (POC) 1.9 mg/dL (0.6-1.0); Glucose (ISTAT POC) 312 mg/dL (70-99); Hemoglobin (POC) 15.3 g/dL (12.0-16.0); Potassium (POC) 4.9 mmol/L (3.5-5.5); Sodium (POC) 140 mmol/L (135-148); Total CO2 (POC) 17 mmol/L (21-32)
[2021-09-30 16:17] LABS: PCO2 Arterial 41.6 mmHg (35-45); PO2 Arterial 69.9 mmHg (80-100); pH Blood Arterial 7.09 (7.35-7.45)
[2021-09-30 16:23] LABS: BASOPHILS ABSOLUTE AUTO 0.06 K/mm3 (0.00-0.23); BASOPHILS PERCENT AUTO 0 % (0-2); EOSINOPHILS PERCENT AUTO 0 % (0-6); Hematocrit 44.5 % (33.0-51.0); Hemoglobin 13.2 g/dL (11.5-16.0); IMMATURE GRAN ABSOLUTE AUTO 0.85 K/mm3 (0.00-0.10); IMMATURE GRAN PERCENT AUTO 3 % (0-1); LYMPHOCYTES PERCENT AUTO 9 % (21-46); MONOCYTES ABSOLUTE AUTO 0.74 K/mm3 (0.16-1.47); MONOCYTES PERCENT AUTO 3 % (4-13); Mean Corpuscular HGB 30.6 pg (26.0-34.0); Mean Corpuscular HGB Conc 29.7 g/dL (31.5-36.5); Mean Corpuscular Volume 103 fL (80-100); Mean Platelet Volume 12.1 fL (9.1-12.4); NEUTROPHILS ABSOLUTE AUTO 23.05 K/mm3 (1.96-9.15); NEUTROPHILS PERCENT AUTO 85 % (41-73); NRBC ABSOLUTE 0.02 K/mm3 (0.00-0.02); NRBC Auto 0.1 /100 WBC (0.0-0.2); Platelet Count 74 K/mm3 (150-400); RDW Coefficient Variation 15.4 % (11.7-14.2); RDW Standard Deviation 58.6 fL (35.1-46.3); Red Blood Cell Count 4.31 M/mm3 (3.80-5.20)
[2021-09-30] MEDS ORDERED: PRED10 PO (16:38)
[2021-09-30 16:41] LABS: Albumin, Blood 2.5 g/dL (3.4-5.0); Albumin/Globulin Ratio 0.6 (0.8-1.8); Bilirubin, Total 0.3 mg/dL (0.1-1.0); Bun/Creatinine Ratio 19.7 (12.0-20.0); Calcium, Blood 9.6 mg/dL (8.5-10.1); Creatinine, Blood 1.78 mg/dL (0.40-1.00); Globulin, Blood 4.4 g/dL (2.2-4.0); Potassium, Blood 4.9 mmol/L (3.5-5.5); Total Protein, Blood 6.9 g/dL (6.4-8.2)
[2021-09-30 22:43] LABS: Source, Urine Foley catheter
[2021-09-30 23:01] LABS: Appearance, Urine Cloudy (Clear); Bilirubin, Urine Neg (Neg); Blood, Urine 3+ (Neg); Glucose Qualitative, Urine Neg (Neg); Ketones, Urine Neg (Neg); Leukocyte Esterase, Urine 3+ (Neg); Nitrite, Urine Neg (Neg); Protein, Urine 2+ (Neg); Specific Gravity, Urine 1.015 (1.003-1.022); Urobilinogen, Urine NORM (Normal)
--- NOTE | 2021-09-30 23:07 | NUR ---
PT ARRIVED AROUND 2119 TO ICU ON CPAP 100% W/SPOUSE.
[2021-09-30 23:15] LABS: Color, Urine Pale Yellow (P-Yellow)
[2021-09-30 23:29] LABS: Adenovirus Not Detected (NOT DETECT); Bordetella pertussis Not Detected (NOT DETECT); Chlamydophila pneumoniae Not Detected (NOT DETECT); Coronavirus 229E Detected (NOT DETECT); Coronavirus HKU1 Not Detected (NOT DETECT); Coronavirus NL63 Not Detected (NOT DETECT); Coronavirus OC43 Not Detected (NOT DETECT); Human Metapneumovirus Not Detected (NOT DETECT); Human Rhinovirus/Enterovirus Not Detected (NOT DETECT); Influenza A/2009-H1 Not Detected (NOT DETECT); Influenza A/H1 Not Detected (NOT DETECT); Influenza A/H3 Not Detected (NOT DETECT); Influenza B Not Detected (NOT DETECT); Mycoplasma pneumoniae Not Detected (NOT DETECT); Parainfluenza Virus 1 Not Detected (NOT DETECT); Parainfluenza Virus 2 Not Detected (NOT DETECT); Parainfluenza Virus 3 Not Detected (NOT DETECT); Parainfluenza Virus 4 Not Detected (NOT DETECT); Respiratory Syncytial Virus Not Detected (NOT DETECT); SARS-Cov-2 (COVID-19), BioFire Detected (NOT DETECT)
[2021-09-30 23:35] LABS: Amorphous Light (0-Heavy); Bacteria Many /hpf; Squamous Epithelial Cells Rare /hpf (Few); Transitional Epithelial Cells Rare /hpf (0-Rare); White Blood Cells, Urine TNTC /hpf (0-5)
[2021-10-01 01:35] LABS: Hematocrit 37.9 % (33.0-51.0); Hemoglobin 11.4 g/dL (11.5-16.0); Mean Corpuscular HGB 30.4 pg (26.0-34.0); Mean Corpuscular HGB Conc 30.1 g/dL (31.5-36.5); Mean Corpuscular Volume 101 fL (80-100); Mean Platelet Volume 11.9 fL (9.1-12.4); Platelet Count 64 K/mm3 (150-400); RDW Coefficient Variation 15.5 % (11.7-14.2); RDW Standard Deviation 56.7 fL (35.1-46.3); Red Blood Cell Count 3.75 M/mm3 (3.80-5.20); White Blood Cell Count 16.78 K/mm3 (4.00-11.30)
[2021-10-01 01:53] LABS: Albumin, Blood 2.2 g/dL (3.4-5.0); Albumin/Globulin Ratio 0.6 (0.8-1.8); Bilirubin, Total 0.4 mg/dL (0.1-1.0); Bun/Creatinine Ratio 21.5 (12.0-20.0); Calcium, Blood 8.1 mg/dL (8.5-10.1); Creatinine, Blood 1.58 mg/dL (0.40-1.00); Globulin, Blood 3.6 g/dL (2.2-4.0); Total Protein, Blood 5.8 g/dL (6.4-8.2)
[2021-10-01 05:25] LABS: PCO2 Arterial 41.5 mmHg (35-45); PO2 Arterial 56.7 mmHg (80-100)
--- NOTE | 2021-10-01 05:46 | NUR ---
NEURO: A&OX4. DENIES PAIN. FOLLOWS COMMAND CV: ST TO SR. NO PITTING EDEMA NOTED LUNG: CLEAR TO AUSCULATE. CONTINUOUS CPAP OVERNIGHT. DESAT TO LOW 80'S W/TURNS OR SIP OF WATER GI/: MANTILLA FOR ACCURATE UO & RETENTION. CATH CARE PERFORMED SKIN: SCATTERED BRUISING GENERALIZED. TURNS SELF IN BED
--- NOTE | 2021-10-01 09:28 | NUR ---
ASSUMED CARE AT 0700, PT REALLY WANTS TO BE OFF THE CPAP 100%, WHEN PATIENT WAS ABLE TO HAVE BOTH R/T HEYLEA AND I AT BEDSIDE, WE PLACED THE AIRVO, PT WAS UNABLE TO MAINTAIN HER SATS, UNABLE TO ATTEMPT TO EAT OR DRINK. HER SATS DROPPED TO 49%
--- NOTE | 2021-10-01 17:50 | NUR ---
PT HAS HAD MULTIPLE VISITORS TODAY. SHE TIRES EASILY, HER RESPIRATORY RATE INCREASES, HER SATS DROP AND HER BLOOD PRESSURE ELEVATES. SHE HAS BEEN TOLD THAT THE VISITORS ARE BEING LIMITED FOR HER HEALTH, NOT A PUNISHMENT. THE FAMILY IS NOT UNDERSTANDING. SHE EXPRESSED HOW SHE HAD A GOOD CONVER- SATION WITH . I BELIEVE SHE IS WANTING TO SAY GOODBYE TO HER FAMILY, SHE WILL TELL US WHO SHE WANTS TO SEE AND WHO SHE DOESN'T. TRYING TO RESPECT HER WISHES WHILE STILL MAINTAINING HER HEALTH. SHE CONT TO DROP TO 80S WHEN SHE REMOVES HER MASK FOR SIPS OF WATER OR ENSURE CLEAR. DIFFICULT TIME RECOVERING BACK TO 90'S. WHEN SHE IS RESTING QUIETLY, HER SATS ARE MID 90S AND HER RESPIRATORY RATE IS 22. WILL CONTINUE TO TRY TO CONTROL VISITORS. ENCOUR- AGE PATIENT'S REST.
--- NOTE | 2021-10-01 21:56 | NUR ---
ASSUMED CARE AT 1900 PATIENT IS ALERT AND ORIENTED X4. 02 SATS 95% ON CPAP 10 FI02 100%, SOB WITH ACTVITY, TAKES A LONG TIME TO RECOVER. LS CLEAR TO DIM. ORAL CARE COMPLETE AND SPIS OF WATER GIVEN. PATIENT REFUSED ORAL MEDICATIONS. HR SR-ST AT 90-110. BP STABLE, PATIENT DENIES CP/PRESSURE. MANTILLA PATENT AND DRAINING TO GRAVITY. PATIENT REPOSITIONED. FAMILY IN ROOM AT START OF SHIFT. SEE SHIFT ASSESSMENT FOR MORE INFORMATION.
--- NOTE | 2021-10-02 04:09 | NUR ---
CALLED HOSPITALIST REGARDING PATIENTS HIGH SYSTOLIC AND DIASTOLIC BLOOD PRESSURE. ORDERS FOR PRN HYDRALAZING OF SYSTOLIC >160 AND TO DC THE FLUIDS FOR NOW.
[2021-10-02 04:13] LABS: BASOPHILS ABSOLUTE AUTO 0.04 K/mm3 (0.00-0.23); BASOPHILS PERCENT AUTO 0 % (0-2); EOSINOPHILS PERCENT AUTO 0 % (0-6); Hemoglobin 10.7 g/dL (11.5-16.0); IMMATURE GRAN ABSOLUTE AUTO 0.11 K/mm3 (0.00-0.10); IMMATURE GRAN PERCENT AUTO 1 % (0-1); LYMPHOCYTES ABSOLUTE AUTO 0.06 K/mm3 (0.84-5.20); LYMPHOCYTES PERCENT AUTO 0 % (21-46); MONOCYTES ABSOLUTE AUTO 0.11 K/mm3 (0.16-1.47); MONOCYTES PERCENT AUTO 1 % (4-13); Mean Corpuscular HGB 30.4 pg (26.0-34.0); Mean Corpuscular HGB Conc 31.5 g/dL (31.5-36.5); Mean Corpuscular Volume 97 fL (80-100); Mean Platelet Volume 12.1 fL (9.1-12.4); NEUTROPHILS ABSOLUTE AUTO 16.08 K/mm3 (1.96-9.15); NEUTROPHILS PERCENT AUTO 98 % (41-73); Platelet Count 56 K/mm3 (150-400); RDW Coefficient Variation 15.4 % (11.7-14.2); Red Blood Cell Count 3.52 M/mm3 (3.80-5.20)
[2021-10-02 04:29] LABS: C-REACTIVE PROTEIN, EXT RANGE 13.4 mg/dL (0.000-0.300)
[2021-10-02 04:34] LABS: Creatine Kinase MB 5.2 ng/mL (0.0-3.6)
[2021-10-02 04:35] LABS: Albumin, Blood 2.2 g/dL (3.4-5.0); Albumin/Globulin Ratio 0.6 (0.8-1.8); Bilirubin, Total 0.3 mg/dL (0.1-1.0); Bun/Creatinine Ratio 24.8 (12.0-20.0); Calcium, Blood 8.8 mg/dL (8.5-10.1); Creatine Kinase MB Index 10.2 (0.0-4.0); Creatinine, Blood 1.25 mg/dL (0.40-1.00); Globulin, Blood 3.7 g/dL (2.2-4.0); Potassium, Blood 3.5 mmol/L (3.5-5.5); Total Protein, Blood 5.9 g/dL (6.4-8.2)
[2021-10-02 04:45] LABS: D-Dimer, Quantitative 19.12 mg/L FEU (0.00-0.52); International Normalized Ratio 1.19; Prothrombin Time Results 12.4 Sec (9.7-11.5)
--- NOTE | 2021-10-02 06:58 | NUR ---
SHIFT SUMMARY PATIENT REMAINS ALERT AND ORIENTED X4. 02 SATS DOWN TO THE 70s AT TIMES, PATIENTS WORK OF BREATHING CONTINUES TO INCREASE, THIS AM PATIENT ANXIOUS AND SATS LOW 80s UNABLE TO RECOVER, RR 30s-40s. CALL RAKESH KIRBY GIVEN PER EMAR. CALLED AROUND 0400 PER PATIENT REQUEST FOR HIM TO COME IN, ANSWERED AT APPROX 0530 AND IS AT BEDSIDE CURRENTLY. HR ST 100-120s, BP HYPERTENSIVE AT TIMES, PRN HYDRALAZINE GIVEN. MANTILLA PATENT AND DRAINING TO GRAVITY. PATIENT REFUSING TURNING AT TIMES THROUGH THE NIGHT. PATIENT REFUSED ALL PO MEDICATIONS. SIPS OF WATER GIVEN TOLERATED. CALL LIGHT IN REACH.
--- NOTE | 2021-10-02 08:44 | NUR ---
ASSUMED CARE OF PATIENT AT 0700, MEDICATED WITH ATIVAN PER APR. PT'S RESPIRATORY RATE IN THE 30-40'S, CPAP WAS AT 10, BAUTISTA CAME IN AND CHANGED HER TO BIPAP 14/01, SATS AT 89-90 FOR A BIT OF TIME. IS CALLING IN FAMILY MEMBERS. UPDATED, OIL REFINER AT BEDSIDE, GRANDDAUGHTER AND SON'S GIRLFRIEND WITH HER. ATTEMPTS TO CALL PALLIATIVE CARE, NO RETURN CALL YET. WILL CONTINUE TO TRY TO KEEP HER SATS >88%.
--- NOTE | 2021-10-02 10:25 | NUR ---
AN ADDITIONAL DOSE OF ATIVAN WAS GIVEN PER 'S ORDER. PALLIATIVE CARE HAS SPOKEN WITH FAMILY, THEY HAVE DECIDED TO MAKE HER COMFORT CARE. AND SON WITH HER WELL SOME OTHER FAMILY MEMBERS. CONTINUES ON BIPAP 14/01. SATS 88-89%.
--- NOTE | 2021-10-02 10:35 | NUR ---
Pt is being placed on Comfort Care, family at bedside. Pt has stated to family and staff she is tired, and ready to remove the bipap. She understands this will result in hypoxia and is not life sustaining. Last evening, I spoke to pt's and he was tearful, but feels ready to "let her go". This morning, I had a talk with both pt and family, first privately and again at bedside. Everyone is in agreement, and understands we are going to medicate pt for comfort and remove mask, replacing with either hi-devin or nasal cannula depending on pt comfort. Verbal orders placed, Dr. Fitzpatrick is present. Palliative will remain available.
--- NOTE | 2021-10-02 11:23 | NUR ---
AT 1045 PT WAS MEDICATED WITH MORPHINE 3MG, R/T BAUTISTA REMOVED THE BIPAP AND PLACED THE PATIENT ON HFNC, FAMILY WITH PATIENT. DILAUDID AND ROXANOL GIVEN PER MAR FOR COMFORT CARE. PT'S CONTINUES WITH LABORED BREATHING, LIPS ARE PURPLE, OXYGEN SATS ARE 34%
--- NOTE | 2021-10-02 12:06 | NUR ---
ROSELINE COULTER CONTINUES WITH DEEP SHARP RESPIRATIONS, SATS AT 47%, HEART RATE REMAINS AT 119, TEMP MANTILLA READING 36.5.
--- NOTE | 2021-10-02 14:15 | NUR ---
Pt. is unreposponsive and is on comfort care. Spouse and family members are present. Facilitate a short life review. Pt. and family have strong spiritual support from their latter day in [place]. Spouse and family are appropriately grieving. Prayed for the family and the pt. Family verbalized gratitude for the spiritual care visit.
--- NOTE | 2021-10-02 14:19 | NUR ---
PT CONTINUES TO HAVE DEEP [place]ISA [place] BREATHING, AT HER SIDE, TEARFUL. HER HEART RATE IS NOW IN THE 70'S FROM THE 110'S, SATS REMAIN 50%. CONTINUE TO MEDICATE PER MAR FOR PATIENTS COMFORT.
--- NOTE | 2021-10-02 14:59 | NUR ---
PT CONTINUES WITH FAMILY BY HER SIDE, NO CHANGES IN HER CARE. ROOM AVAILABLE FOR HER ON MEDICAL FLOOR, WILL BE SENDING HER UPSTAIRS.
--- NOTE | 2021-10-02 15:57 | NUR ---
PT'S HEART RATE HAS BEEN DECREASING FOR THE LAST HOUR OR SO, FAMILY NOTIFIED. HEART RATE HANGING AT 30 FOR FEW MOMENTS, FAMILY MADE AWARE, WATCHED THE SAT PROBE NO LONGER READ, WENT IN TO ROOM WITH FAMILY, AUSCULTATED CHEST, CAROTIDS PT PRONOUNCED AT 1557. FAMILY AT BEDSIDE, , BROTHER, GRANDDAUGHTER AND "DAUGHTER". NOTIFIED, OR FIRST ASSIST REGISTERED NURSEANA LASSITER NOTIFIED, DONOR LINE NOTIFIED. ASKED FOR HER W[place]DING BAND, GOLD BAND REMOVED FROM HER FINGER WITH LUBRICANT AND GIVEN TO .
--- NOTE | 2021-10-02 16:44 | NUR ---
Spiritual Care - EOL Prayer Pt. had passed and EOL [place] was given for both the Pt. and the family. The family confirmed that there are more family coming to be with the Pt. and family. They will let the nurses know when they are leaving for good. [facility] as the home of choice.
--- NOTE | 2021-10-02 17:39 | NUR ---
FAMILY HAS LEFT, [employer] HAS BEEN NOTIFIED. PT'S IVS AND CATHETER REMOVED.
== END 2021-10-02 15:57 | DRG 871 ==
LOC: ER 16:01 → ICUW 18:11
PROVIDERS: Emergency Medicine; Family Medicine; ADMIT Internal Medicine
PROC: 5A0935A Assistance with Respiratory Ventilation, Less than 24 Consecutive Hours, High Flow/Velocity Cannula (ICD-10-PCS; principal; 2021-09-30)
PROC: 3E03329 Introduction of Other Anti-infective into Peripheral Vein, Percutaneous Approach (ICD-10-PCS; 2021-09-30)
PROC: 8E0ZXY6 Isolation (ICD-10-PCS; 2021-09-30)
PROC: 5A09357 Assistance with Respiratory Ventilation, Less than 24 Consecutive Hours, Continuous Positive Airway Pressure (ICD-10-PCS; 2021-09-30)
DX: A41.59 Other Gram-negative sepsis (principal); J18.9 Pneumonia, unspecified organism; J96.21 Acute and chronic respiratory failure with hypoxia; U07.1 COVID-19; E87.2 Acidosis; N39.0 Urinary tract infection, site not specified; N17.9 Acute kidney failure, unspecified; J44.0 Chronic obstructive pulmonary disease with (acute) lower respiratory infection; D84.821 Immunodeficiency due to drugs; Z16.12 Extended spectrum beta lactamase (ESBL) resistance; Z66 Do not resuscitate; Z51.5 Encounter for palliative care; R65.20 Severe sepsis without septic shock; I27.20 Pulmonary hypertension, unspecified; M06.9 Rheumatoid arthritis, unspecified; J84.10 Pulmonary fibrosis, unspecified; E66.9 Obesity, unspecified; E11.22 Type 2 diabetes mellitus with diabetic chronic kidney disease; I12.9 Hypertensive chronic kidney disease with stage 1 through stage 4 chronic kidney disease, or unspecified chronic kidney disease; N18.30 Chronic kidney disease, stage 3 unspecified; K21.9 Gastro-esophageal reflux disease without esophagitis; E11.65 Type 2 diabetes mellitus with hyperglycemia; D69.6 Thrombocytopenia, unspecified; R74.01 Elevation of levels of liver transaminase levels; Z79.51 Long term (current) use of inhaled steroids; Z87.891 Personal history of nicotine dependence; Z79.4 Long term (current) use of insulin; Z79.899 Other long term (current) drug therapy; Z79.52 Long term (current) use of systemic steroids; Z79.2 Long term (current) use of antibiotics; Z90.49 Acquired absence of other specified parts of digestive tract; Z98.890 Other specified postprocedural states; Z99.81 Dependence on supplemental oxygen; Z68.32 Body mass index [BMI] 32.0-32.9, adult
CPT/HCPCS: 0202U; 36415; 36600; 51702; 71045; 71260; 80047; 80053; 81001; 82550; 82553; 82803; 82947; 83605; 83615; 83735; 83880; 84145; 84484; 85014; 85025; 85027; 85379; 85610; 86140; 87040; 87077; 87086; 87186; 87449; 93005; 93010; 94640; 94644; 94660; 94664; 96365; 96367; 96368; 99285-25; A9270; J0360; J0456; J0696; J1170; J1650; J2060; J2185; J2270; J2543; J2930; J3370; J7030; J7050; J7060; Q9967